=== PATIENT | male | born 1945 | race Caucasian/White ===

== ENCOUNTER 2019-05-15 07:32 | Inpatient (IN) | payer MEDICARE, OTHER ==
[2019-05-15] VITALS (14 sets, daily range): BP systolic 119–205; BP diastolic 58–101
[~2019-05-15] VITALS: Ht 175.3 cm; Wt 81.7 kg
[2019-05-15] MEDS ORDERED: IV RINGERS,LACTATED 1000ML 1,000 ML IV ONE (07:45)
[2019-05-15] MEDS ORDERED: LOSA-73 PO ×2 (07:46→14:58)
[2019-05-15] MEDS ORDERED: METO50TA6 PO (07:46)
[2019-05-15] MEDS ORDERED: PRAV20TA2 PO (07:46)
[2019-05-15] MEDS ORDERED: METOPROLOL TARTRATE 5 MG/5 ML VIAL. IVP ONE ×2 (09:54→10:30)
[2019-05-15] MEDS ORDERED: AMLO5TAB10 PO (09:58)
[2019-05-15 10:06] LABS: BASO # 0.1 x10^3/uL (0.0-0.2); BASO % 1 % (0-3); EOS # 0.2 x10^3/uL (0.0-0.7); EOS % 2 % (0-3); HEMATOCRIT 46.2 % (39.0-53.0); HEMOGLOBIN 14.8 g/dL (13.0-17.5); LYMPH # 1.2 x10^3/uL (1.0-4.8); LYMPH % 13 % (24-48); MEAN CORPUSCULAR HEMOGLOBIN 26 pg (25-35); MEAN CORPUSCULAR HGB CONC 32 g/dL (31-37); MEAN CORPUSCULAR VOLUME 82 fL (79-100); MONO # 0.7 x10^3/uL (0.0-1.1); MONO % 8 % (0-9); NEUT # 6.9 x10^3/uL (1.8-7.7); NEUT % 76 % (31-73); PLATELET COUNT 214 x10^3/uL (140-400); RED BLOOD COUNT 5.65 x10^6/uL (4.30-5.70); RED CELL DISTRIBUTION WIDTH 26.9 % (11.5-14.5); WHITE BLOOD COUNT 9.1 x10^3/uL (4.0-11.0)
[2019-05-15 10:15] LABS: CALCIUM 9.4 mg/dL (8.5-10.1); CREATININE 1.2 mg/dL (0.7-1.3); GFR 59.3
--- NOTE | 2019-05-15 10:19 | PDOC2 ---
CARDIAC CONSULT DATE OF CONSULT Date of Consult DATE: 05/15/19 TIME: 10:09 REASON FOR CONSULT Reason for Consult: Arrhythmia REFERRING PHYSICIAN Referring Physician: Dr. Stokes SOURCE Source: Chart review, Patient HISTORY OF PRESENT ILLNESS HISTORY OF PRESENT ILLNESS Patient was scheduled for outpatient EGD today. Preoperative EKG abnormal and patient having lots of ectopy. EGD/colonoscopy was cancelled and patient was admitted to the hospital for further evaluation and treatment. Patient was told no solid foods for GI prep, but didn't realized he could still take his medications. He has not had any metoprolol since Monday. Does have a history of CAD s/p PCI/stents x2 in 2001. Follows with Dr. Harrell. Denies any chest pain, palpitations, dizziness, diaphoresis, or nausea/vomiting. Does reports some SOA with exertion for the last 6 months. PAST MEDICAL HISTORY Cardiovascular: CAD, HTN, Hyperlipidemia GI: Diverticulosis Heme/Onc: Anemia NOS PAST SURGICAL HISTORY Past Surgical History: Other (aortic aneurysm repair, PCI/stents ) FAMILY HISTORY Family History: Coronary Artery Disease, Hypertension SOCIAL HISTORY Smoke: Quit (22 years ago ) ALCOHOL: other (quit 32 years ago ) Drugs: None Lives: with Family CURRENT MEDICATIONS CURRENT MEDICATIONS Current Medications Medications (Trade) Dose Ordered Sig/Davian Route PRN Reason Start Time Stop Time Status Last Admin Dose Admin Ringer's Solution 1,000 ml @ 75 mls/hr 1X ONCE IV 05/15/19 07:45 05/15/19 21:04 05/15/19 08:20 ALLERGIES ALLERGIES: Coded Allergies: No Known Drug Allergies (Unverified , 05/15/19) ROS Review of System 14 point ROS conducted with pertinent positives noted above in HPI PHYSICAL EXAM General: Alert, Oriented X3, Cooperative, No acute distress HEENT: Atraumatic, Mucous membr. moist/pink Lungs: Clear to auscultation, Normal air movement Heart: Regular rate (SR with frequent PAC's, PVC's, couplets. ) Abdomen: Soft, No tenderness Extremities: No edema, Normal pulses Skin: No breakdown, No significant lesion Neuro: Normal speech, Sensation intact Psych/Mental Status: Mental status NL, Mood NL MUSCULOSKELETAL: Osteoarthritic changes both hands VITALS/I&O VITALS/I&O: Vital Signs Date Time Temp Pulse Resp B/P (MAP) Pulse Ox O2 Delivery O2 Flow Rate FiO2 05/15/19 08:14 97.5 63 20 98 97.5 LABS Lab: Laboratory Tests Test 05/15/19 09:55 White Blood Count 9.1 x10^3/uL (4.0-11.0) Red Blood Count 5.65 x10^6/uL (4.30-5.70) Hemoglobin 14.8 g/dL (13.0-17.5) Hematocrit 46.2 % (39.0-53.0) Mean Corpuscular Volume 82 fL (79-100) Mean Corpuscular Hemoglobin 26 pg (25-35) Mean Corpuscular Hemoglobin Concent 32 g/dL (31-37) Red Cell Distribution Width 26.9 % (11.5-14.5) H Platelet Count 214 x10^3/uL (140-400) Neutrophils (%) (Auto) 76 % (31-73) H Lymphocytes (%) (Auto) 13 % (24-48) L Monocytes (%) (Auto) 8 % (0-9) Eosinophils (%) (Auto) 2 % (0-3) Basophils (%) (Auto) 1 % (0-3) Neutrophils # (Auto) 6.9 x10^3/uL (1.8-7.7) Lymphocytes # (Auto) 1.2 x10^3/uL (1.0-4.8) Monocytes # (Auto) 0.7 x10^3/uL (0.0-1.1) Eosinophils # (Auto) 0.2 x10^3/uL (0.0-0.7) Basophils # (Auto) 0.1 x10^3/uL (0.0-0.2) Laboratory Tests 05/15/19 09:55 ECHOCARDIOGRAM ECHOCARDIOGRAM 02/20/18 - 2-D + DOPPLER ECHOCARDIOGRAM * Left Ventricle: Normal size. Concentric remodeling. Normal ejection fraction. Normal left ventricular diastolic function. * Right Ventricle: Normal size and ejection fraction. * Trileaflet, focally calcified aortic valve with restricted leaflet motion without hemodynamically significant stenosis. No regurgitation. STRESS TEST STRESS TEST 03/02/18 - Procedure: D-SPECT MULTI GATED THALLIUM REGADENOSON MPI STRESS TEST Pharmacological Stress Electrocardiogram: The patient's resting heart rate was 57 bpm and the resting blood pressure was 141/68. The patients peak stress heart rate was 83 bpm and the peak stress blood pressure was 117/64. Following the administration of Regadenoson the patient experienced shortness of breath, chest pressure, and flushing. The symptoms resolved prior to completion of protocol. The resting ECG shows normal sinus rhythm. Following the administration of Regadenoson there are rare PVCs. There is no ST segment deviation from baseline. Conclusion: Pharmacologic stress ECG is negative for ischemia ASSESSMENT/PLAN ASSESSMENT/PLAN 1. Arrhythmia; patient having frequent PAC's and PVC's. Underlying SR. No sustained VT thus far. Has been off metoprolol since this past Monday when he began GI prep. 2. CAD s/p PCI/stents x2 in [address]. [address] Harrell with [facility] 3. Aortic aneurysm repair; 04/2018 4. Hypertension; controlled 5. Hyperlipidemia; statin 6. Anemia, iron deficiency; EGD/colonoscopy planned 7. Diverticulosis Recommendations Monitor tele CBC, BMP, Mg Echo to assess LV systolic function Metoprolol IV x1 now Resume oral metoprolol Resume secondary prevention; add ASA as well If echo WNL and arrhythmias subside, may discharge from a CV standpoint and f/u with Dr. Harrell Consider outpatient ischemic evaluation given YOUNG; will defer to primary drop forger. LIUDMILA CARMICHAEL APRN May 15, 2019 10:19
[2019-05-15 10:20] LABS: ALBUMIN 4.2 g/dL (3.4-5.0); ALBUMIN/GLOBULIN RATIO 1.4 (1.0-1.7); MAGNESIUM 1.9 mg/dL (1.8-2.4); TOTAL BILIRUBIN 0.6 mg/dL (0.2-1.0); TOTAL PROTEIN 7.2 g/dL (6.4-8.2)
--- NOTE | 2019-05-15 10:42 | RAD ---
CHEST AP ONLY History: Shortness of breath Comparison: 06/12/2018 Findings: Single view of the chest is submitted. There are clips in the left upper quadrant of the abdomen. There is mild left base airspace opacity, somewhat linear morphology. There is no pneumothorax. Cardiac silhouette is considered within normal limits given technique. There is atherosclerotic calcification near aortic arch. There is again small radiopaque body projecting over the right lung base region of uncertain AP location. No significant dependent pleural fluid is identified by this exam. Impression: 1. There is left base opacity, evidence of atelectasis or infiltrate. Electronically signed by: Kit Mejía MD (05/15/2019 10:39 AM) [id number]
[2019-05-15] MEDS ORDERED: METOPROLOL TART IMMED RELEASE 50 MG TABLET. PO SCH ×2 (11:00→21:00)
--- NOTE | 2019-05-15 11:01 | PDOC1 ---
History and Physical Date of Admission Date of Admission DATE: 05/15/19 TIME: 11:01 Identification/Chief Complaint Chief Complaint seen in endoscopy lab with uncontrolled htn, intermittent chest discomfort, PVC'S, STATES HE IS unable to walk across the room without SOA endoscopy cancelled due to abnormal EKG notes he snores a lot at night Past Medical History Past Medical History Aortic aneurysm repair; 04/2018 Cardiovascular: CAD, HTN, Hyperlipidemia GI: Diverticulosis Heme/Onc: Anemia NOS Infectious disease: No pertinent hx Family History Family History: High Cholestrol, Hypertension Social History Smoke: Quit ALCOHOL: none Drugs: None Current Medications Current Medications Current Medications Ringer's Solution 1,000 ml @ 75 mls/hr 1X ONCE IV Last administered on 05/15/19at 08:20; Start 05/15/19 at 07:45; Stop 05/15/19 at 21:04 Metoprolol Tartrate (Lopressor) 50 mg BID PO Last administered on 05/15/19at 10:43; Start 05/15/19 at 11:00 Metoprolol Tartrate (Lopressor Vial) 5 mg STK-MED ONCE IVP ; Start 05/15/19 at 09:54; Stop 05/15/19 at 09:54; Status DC Metoprolol Tartrate (Lopressor Vial) 5 mg 1X ONCE IVP Last administered on 05/15/19at 10:19; Start 05/15/19 at 10:30; Stop 05/15/19 at 10:31; Status DC Amlodipine Besylate (Norvasc) 5 mg DAILY PO ; Start 05/15/19 at 12:00 Losartan Potassium (Cozaar) 20 mg DAILY PO ; Start 05/16/19 at 09:00; Status UNV Metoprolol Tartrate (Lopressor) 50 mg BID PO ; Start 05/15/19 at 21:00; Stop 05/15/19 at 10:47; Status DC Non-Formulary Medication (Pravastatin Sodium ) 20 mg DAILY PO ; Start 05/16/19 at 09:00; Status UNV Aspirin (Ecotrin) 81 mg DAILYWBKFT PO ; Start 05/15/19 at 12:00 Active Scripts Active Reported Amlodipine Besylate 5 Mg Tablet 5 Mg PO DAILY Losartan Potassium 50 Mg Tablet 20 Mg PO DAILY Pravastatin Sodium 20 Mg Tablet 20 Mg PO DAILY Metoprolol Tartrate 50 Mg Tablet 50 Mg PO BID Allergies Allergies: Coded Allergies: No Known Drug Allergies (Unverified , 05/15/19) ROS General: YES: Fatigue Eyes: No Blurry vision, No Decreased vision, No Double vision, No Dry eyes, No Excessive tearing, No Eye Pain, No Itchy Eyes, No Loss of vision, No Photophobia, No Scotomata, No Uses contacts, No Uses glasses, No Other HEENT: No: Heacaches, Visual Changes, Hearing change, Nasal congestion, Nasal discharge, Oral lesions, Sinus pain, Sore Throat, Epistaxis, Sneezing, Snoring, Tinnitus, Vertigo, Vocal changes, Other ALLERGY AND IMMUNOLOGY: No: Hives, Insect Bite Sensitivity, Itchy/Watery Eyes, Nasal Congestion, Post Nasal Drip, Seasonal Allergies, Other Hematological and Lymphatic: No: Bleeding Problems, Blood Clots, Blood Transfusions, Brusing, Night Sweats, Pallor, Swollen Lymph Nodes, Other Respiratory: YES: Shortness of breath, SOB with excertion Gastrointestinal: No Nausea, No Vomiting, No Abdominal Pain, No Diarrhea, No Constipation, No Melena, No Hematochezia, No Other Musculoskeletal: No Gait Disturbance, No Joint Pain, No Joint Stiffness, No Joint Swelling, No Muscle Pain, No Muscular Weakness, No Pain In:, No Swelling In:, No Other Neurological: No Behavorial Changes, No Bowel/Bladder ControlChng, No Confusion, No Dizziness, No Gait Disturbance, No Headaches, No Impaired Coord/balance, No Memory Loss, No Numbness/Tingling, No Seizures, No Speech Problems, No Tremors, No Visual Changes, No Weakness, No Other Physical Exam Physical Exam LEFT THORACOTOMY SCAR WNL General: Alert, Oriented X3, Cooperative, No acute distress HEENT: Atraumatic, PERRLA Lungs: Normal air movement, Other (LEFT BASILAR CRACKLES) Heart: no thrills, other (FREQ PVC'S ) Breasts: Not examined Abdomen: Normal bowel sounds, Soft Rectal Exam: not examined PELVIC: Examination not indicated Extremities: No cyanosis, No edema Neuro: Normal speech, Cranial nerves 3-12 NL Psych/Mental Status: Mental status NL, Mood NL Vitals Vitals Vital Signs Date Time Temp Pulse Resp B/P (MAP) Pulse Ox O2 Delivery O2 Flow Rate FiO2 05/15/19 10:43 75 119/92 05/15/19 08:14 97.5 20 98 97.5 Labs Labs Laboratory Tests Test 05/15/19 09:55 White Blood Count 9.1 x10^3/uL (4.0-11.0) Red Blood Count 5.65 x10^6/uL (4.30-5.70) Hemoglobin 14.8 g/dL (13.0-17.5) Hematocrit 46.2 % (39.0-53.0) Mean Corpuscular Volume 82 fL (79-100) Mean Corpuscular Hemoglobin 26 pg (25-35) Mean Corpuscular Hemoglobin Concent 32 g/dL (31-37) Red Cell Distribution Width 26.9 % (11.5-14.5) Platelet Count 214 x10^3/uL (140-400) Neutrophils (%) (Auto) 76 % (31-73) Lymphocytes (%) (Auto) 13 % (24-48) Monocytes (%) (Auto) 8 % (0-9) Eosinophils (%) (Auto) 2 % (0-3) Basophils (%) (Auto) 1 % (0-3) Neutrophils # (Auto) 6.9 x10^3/uL (1.8-7.7) Lymphocytes # (Auto) 1.2 x10^3/uL (1.0-4.8) Monocytes # (Auto) 0.7 x10^3/uL (0.0-1.1) Eosinophils # (Auto) 0.2 x10^3/uL (0.0-0.7) Basophils # (Auto) 0.1 x10^3/uL (0.0-0.2) Sodium Level 142 mmol/L (136-145) Potassium Level 4.0 mmol/L (3.5-5.1) Chloride Level 105 mmol/L (98-107) Carbon Dioxide Level 25 mmol/L (21-32) Anion Gap 12 (6-14) Blood Urea Nitrogen 18 mg/dL (8-26) Creatinine 1.2 mg/dL (0.7-1.3) Estimated GFR (Cockcroft-Gault) 59.3 BUN/Creatinine Ratio 15 (6-20) Glucose Level 90 mg/dL (70-99) Calcium Level 9.4 mg/dL (8.5-10.1) Magnesium Level 1.9 mg/dL (1.8-2.4) Total Bilirubin 0.6 mg/dL (0.2-1.0) Aspartate Amino Transf (AST/SGOT) 16 U/L (15-37) Alanine Aminotransferase (ALT/SGPT) 21 U/L (16-63) Alkaline Phosphatase 91 U/L (46-116) Troponin I Quantitative < 0.017 ng/mL (0.000-0.055) Total Protein 7.2 g/dL (6.4-8.2) Albumin 4.2 g/dL (3.4-5.0) Albumin/Globulin Ratio 1.4 (1.0-1.7) Laboratory Tests Test 05/15/19 09:55 White Blood Count 9.1 x10^3/uL (4.0-11.0) Red Blood Count 5.65 x10^6/uL (4.30-5.70) Hemoglobin 14.8 g/dL (13.0-17.5) Hematocrit 46.2 % (39.0-53.0) Mean Corpuscular Volume 82 fL (79-100) Mean Corpuscular Hemoglobin 26 pg (25-35) Mean Corpuscular Hemoglobin Concent 32 g/dL (31-37) Red Cell Distribution Width 26.9 % (11.5-14.5) Platelet Count 214 x10^3/uL (140-400) Neutrophils (%) (Auto) 76 % (31-73) Lymphocytes (%) (Auto) 13 % (24-48) Monocytes (%) (Auto) 8 % (0-9) Eosinophils (%) (Auto) 2 % (0-3) Basophils (%) (Auto) 1 % (0-3) Neutrophils # (Auto) 6.9 x10^3/uL (1.8-7.7) Lymphocytes # (Auto) 1.2 x10^3/uL (1.0-4.8) Monocytes # (Auto) 0.7 x10^3/uL (0.0-1.1) Eosinophils # (Auto) 0.2 x10^3/uL (0.0-0.7) Basophils # (Auto) 0.1 x10^3/uL (0.0-0.2) Sodium Level 142 mmol/L (136-145) Potassium Level 4.0 mmol/L (3.5-5.1) Chloride Level 105 mmol/L (98-107) Carbon Dioxide Level 25 mmol/L (21-32) Anion Gap 12 (6-14) Blood Urea Nitrogen 18 mg/dL (8-26) Creatinine 1.2 mg/dL (0.7-1.3) Estimated GFR (Cockcroft-Gault) 59.3 BUN/Creatinine Ratio 15 (6-20) Glucose Level 90 mg/dL (70-99) Calcium Level 9.4 mg/dL (8.5-10.1) Magnesium Level 1.9 mg/dL (1.8-2.4) Total Bilirubin 0.6 mg/dL (0.2-1.0) Aspartate Amino Transf (AST/SGOT) 16 U/L (15-37) Alanine Aminotransferase (ALT/SGPT) 21 U/L (16-63) Alkaline Phosphatase 91 U/L (46-116) Troponin I Quantitative < 0.017 ng/mL (0.000-0.055) Total Protein 7.2 g/dL (6.4-8.2) Albumin 4.2 g/dL (3.4-5.0) Albumin/Globulin Ratio 1.4 (1.0-1.7) Images Images CHEST AP ONLY History: Shortness of breath Comparison: 06/12/2018 Findings: Single view of the chest is submitted. There are clips in the left upper quadrant of the abdomen. There is mild left base airspace opacity, somewhat linear morphology. There is no pneumothorax. Cardiac silhouette is considered within normal limits given technique. There is atherosclerotic calcification near aortic arch. There is again small radiopaque body projecting over the right lung base region of uncertain AP location. No significant dependent pleural fluid is identified by this exam. Impression: 1. There is left base opacity, evidence of atelectasis or infiltrate. Electronically signed by: Kit Mejía MD (05/15/2019 10:39 AM) [id number] VTE Prophylaxis Ordered VTE Prophylaxis Devices: No VTE Pharmacological Prophylaxi: Yes Assessment/Plan Assessment/Plan IMPRESSION intermittent CHEST PAIN with frequent PVC'S LEFT BASILAR INFILTRATE/ vs atelectasis possible sleep apnea New onset Dyspnea CAD s/p PCI/stents x2 in [address]. [address] Harrell with [facility] Aortic aneurysm repair; 04/2018 Hypertension; UNCONTROLLED IN OUT PT, NOW improved remote tobacco and alcohol abuse stopped 23 yrs ago PLAN ADMIT SERIAL TROPONIN I NEG X 1 ECHO CARDIOLOGY CONSULT HOME MEDS CXR REVIEWED PULM CONSULT INCENTIVE SPIROMETRY KACI RAMSAY MD May 15, 2019 11:01
--- NOTE | 2019-05-15 11:16 | PDOC ---
Subjective: Subjective: Outpt 'scopes cancelled this morning due to shortness of breath, admitted for cardiology evaluation. He tells me he was cleared for discharge by the cardiology and waistband setter lockstitch. Objective: Vital Signs: Vital Signs Date Time Temp Pulse Resp B/P (MAP) Pulse Ox O2 Delivery O2 Flow Rate FiO2 05/15/19 10:43 75 119/92 05/15/19 08:14 97.5 20 98 97.5 Labs: Laboratory Tests Test 05/15/19 09:55 White Blood Count 9.1 x10^3/uL Red Blood Count 5.65 x10^6/uL Hemoglobin 14.8 g/dL Hematocrit 46.2 % Mean Corpuscular Volume 82 fL Mean Corpuscular Hemoglobin 26 pg Mean Corpuscular Hemoglobin Concent 32 g/dL Red Cell Distribution Width 26.9 % Platelet Count 214 x10^3/uL Neutrophils (%) (Auto) 76 % Lymphocytes (%) (Auto) 13 % Monocytes (%) (Auto) 8 % Eosinophils (%) (Auto) 2 % Basophils (%) (Auto) 1 % Neutrophils # (Auto) 6.9 x10^3/uL Lymphocytes # (Auto) 1.2 x10^3/uL Monocytes # (Auto) 0.7 x10^3/uL Eosinophils # (Auto) 0.2 x10^3/uL Basophils # (Auto) 0.1 x10^3/uL Platelet Estimate Pending Sodium Level 142 mmol/L Potassium Level 4.0 mmol/L Chloride Level 105 mmol/L Carbon Dioxide Level 25 mmol/L Anion Gap 12 Blood Urea Nitrogen 18 mg/dL Creatinine 1.2 mg/dL Estimated GFR (Cockcroft-Gault) 59.3 BUN/Creatinine Ratio 15 Glucose Level 90 mg/dL Calcium Level 9.4 mg/dL Magnesium Level 1.9 mg/dL Total Bilirubin 0.6 mg/dL Aspartate Amino Transf (AST/SGOT) 16 U/L Alanine Aminotransferase (ALT/SGPT) 21 U/L Alkaline Phosphatase 91 U/L Troponin I Quantitative < 0.017 ng/mL Total Protein 7.2 g/dL Albumin 4.2 g/dL Albumin/Globulin Ratio 1.4 Imaging: CXR 05/15 Impression: 1. There is left base opacity, evidence of atelectasis or infiltrate. PE: GEN: NAD LUNGS: CTAB HEART: RRR ABD: NABS, S/ND/NT NEURO/PSYCH: A & O 3 A/P: Anemia - scheduled for outpt EGD and colonoscopy for further eval (normal Hgb today) Shortness of breath -- Called by nurse - pt apparently stopped home meds this week. Cardiology has cleared for EGD/colon before outpt stress test. Pt prefers not to re-prep. Reviewed w/ Dr. Galvan - can proceed w/ 'scopes as inpt today. D/w GI lab. Will tentatively plan for EGD and colonoscopy this afternoon pending results of echo. KILLIAN GOOD May 15, 2019 11:16
--- NOTE | 2019-05-15 11:31 | EKG ---
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
[2019-05-15] MEDS ORDERED: amLODIPine BESYLATE 5 MG TABLET PO SCH (12:00)
[2019-05-15] MEDS ORDERED: ASPIRIN ENTERIC COATED 81 MG TABLET.DR. PO SCH (12:00)
[2019-05-15] MEDS ORDERED: LOSARTAN POTASSIUM 50 MG TABLET. PO SCH (12:00)
[2019-05-15 12:16] LABS: ANISOCYTOSIS MOD; PLT ESTIMATE ADEQUATE (ADEQUATE)
[2019-05-15] MEDS ORDERED: hydrALAZINE 20 MG/ML VIAL. IVP PRN (12:30)
[2019-05-15] MEDS ORDERED: LIDOCAINE 2% PF 5 ML VIAL. ONE (13:21)
[2019-05-15] MEDS ORDERED: PROPOFOL 40 ML IV ONE (13:21)
--- NOTE | 2019-05-15 14:07 | CARD ---
MR#: [id number] Date of Study: 05/15/2019 Ordering Physician: JULIANE KINNEY, Referring Physician: JULIANE KINNEY, Tech: Sarai Hernandez [facility] APPROVED REPORT EXAM: Two-dimensional and M-mode echocardiogram with Doppler and color Doppler. Other Information Quality : AverageHR: 48bpm INDICATION Assess LV function RISK FACTORS Hypertension Hyperlipidemia CAD 2D DIMENSIONS RVDd3.9 (2.9-3.5cm)Left Atrium(2D)4.0 (1.6-4.0cm) IVSd1.6 (0.7-1.1cm)Aortic Root(2D)3.5 (2.0-3.7cm) LVDd4.6 (3.9-5.9cm)LVOT Diameter2.0 (1.8-2.4cm) PWd1.5 (0.7-1.1cm)LVDs2.9 (2.5-4.0cm) FS (%) 36.2 %SV63.5 ml LVEF(%)65.9 (>50%) Aortic Valve AoV Peak Fabio.112.7cm/[place] Peak GR.5.1mmHg LVOT Peak Fabio.73.3cm/sAVA (VMAX)2.10cm2 Mitral Valve MV E Ifzeigmb48.6cm/sMV DECEL [id number] MV A Fpppemjo37.0cm/sE/A Ratio0.6 MV A [id number] Pulmonary Valve PV Peak Vybuqbfu467.8cm/s Pulmonary Vein S1 Zrnppsrf43.4cm/sD2 Vuycoeyy75.2cm/s PVa [id number] LEFT VENTRICLE The left ventricle is normal size. There is moderate concentric left ventricular hypertrophy. The lef t ventricular systolic function is normal. The Ejection Fraction is 55-60%. There is normal LV segmen priscilla wall motion. Transmitral Doppler flow pattern is Grade I-abnormal relaxation pattern. There is no ventricular septal defect visualized. RIGHT VENTRICLE The right ventricle is normal size. The right ventricular systolic function is normal. ATRIA The left atrium size is normal. The right atrium size is at the upper limits of normal in size. The i nteratrial septum is intact with no evidence for an atrial septal defect or patent foramen ovale as n oted on 2-D or Doppler imaging. AORTIC VALVE The aortic valve is mildly thickened but opens well. Doppler and Color Flow revealed no significant a ortic regurgitation. There is no significant aortic valvular stenosis. MITRAL VALVE Mitral annular calcification is mild. There is no evidence of mitral valve prolapse. There is no mitr al valve stenosis. Doppler and Color-flow revealed mild mitral regurgitation. TRICUSPID VALVE The tricuspid valve is normal in structure and function. Doppler and Color Flow revealed no tricuspid valve regurgitation noted. Unable to assess PA pressure. There is no tricuspid valve stenosis. PULMONIC VALVE The pulmonary valve is normal in structure and function. Doppler and Color Flow revealed mild pulmoni c valvular regurgitation. There is no pulmonic valvular stenosis. GREAT VESSELS The aortic root is normal in size. The ascending aorta is normal in size. The pulmonary artery is nor mal. The IVC is normal in size and collapses >50% with inspiration. PERICARDIAL EFFUSION There is no pleural effusion. There is no evidence of significant pericardial effusion. Critical Notification Critical Value: No <Conclusion> The left ventricular systolic function is normal. The Ejection Fraction is 55-60%. There is normal LV segmental wall motion. Transmitral Doppler flow pattern is Grade I-abnormal relaxation pattern. Doppler and Color-flow revealed mild mitral regurgitation. There is no evidence of significant pericardial effusion. Signed by : Steven Reyes, Electronically Approved : 05/15/2019 14:06:59
--- NOTE | 2019-05-15 14:16 | PDOC4 ---
Operative Note Operative Note EGD/Colonoscopy Meds propofol per anesthesia Pre-op dx chronic blood loss anemia post-o dx gastritis sigmoid diverticulosis internal hemorrhoids Plan advance diet and release home with cardiology follow up WAN SHABAZZ MD May 15, 2019 14:16
--- NOTE | 2019-05-15 14:53 | PDOC3 ---
Discharge Summary Date of Admission: May 15, 2019 Date of Discharge: May 15, 2019 Follow-Up: 3-5 days Admitting Diagnosis comment: VTE Prophylaxis Ordered VTE Prophylaxis Devices: No VTE Pharmacological Prophylaxi: Yes DISCHARGE DX Assessment/Plan IMPRESSION intermittent CHEST PAIN with frequent PVC'S LEFT BASILAR INFILTRATE/ vs atelectasis possible sleep apnea New onset Dyspnea CAD s/p PCI/stents x2 in 2001. Follows with Dr. Harrell with [facility] Aortic aneurysm repair; 04/2018 Hypertension; UNCONTROLLED IN OUT PT, NOW improved remote tobacco and alcohol abuse stopped 23 yrs ago PLAN ADMIT SERIAL TROPONIN I NEG X 1 ECHO CARDIOLOGY CONSULT, SEE SOON OUT PT [facility] CXR REVIEWED PULM CONSULT OK WITH D/C PER CHRISTIANO CANTU SEE PULM 6 MONTHS INCENTIVE SPIROMETRY Plan advance diet and release home with cardiology follow up Brief Hospital Course Mr. Salazar is a 74 old [sex] who presented with [ SEVERE HTN] CONDITION AT DISCHARGE: Improved Discharge Medications Current Medications Ringer's Solution 1,000 ml @ 75 mls/hr 1X ONCE IV Last administered on 05/15/19at 08:20; Start 05/15/19 at 07:45; Stop 05/15/19 at 21:04 Metoprolol Tartrate (Lopressor) 50 mg BID PO Last administered on 05/15/19at 10:43; Start 05/15/19 at 11:00 Metoprolol Tartrate (Lopressor Vial) 5 mg STK-MED ONCE IVP ; Start 05/15/19 at 09:54; Stop 05/15/19 at 09:54; Status DC Metoprolol Tartrate (Lopressor Vial) 5 mg 1X ONCE IVP Last administered on 05/15/19at 10:19; Start 05/15/19 at 10:30; Stop 05/15/19 at 10:31; Status DC Amlodipine Besylate (Norvasc) 5 mg DAILY PO Last administered on 05/15/19at 11:22; Start 05/15/19 at 12:00 Losartan Potassium (Cozaar) 20 mg DAILY PO ; Start 05/16/19 at 09:00; Stop 05/15/19 at 11:03; Status DC Metoprolol Tartrate (Lopressor) 50 mg BID PO ; Start 05/15/19 at 21:00; Stop 05/15/19 at 10:47; Status DC Atorvastatin Calcium (Lipitor) 5 mg QHS PO ; Start 05/15/19 at 21:00 Aspirin (Ecotrin) 81 mg DAILYWBKFT PO ; Start 05/15/19 at 12:00 Losartan Potassium (Cozaar) 50 mg DAILY PO Last administered on 05/15/19at 11:29; Start 05/15/19 at 12:00 Hydralazine HCl (Apresoline Inj) 10 mg PRN Q4HRS PRN IVP ELEVATED BP, SEE COMMENTS; Start 05/15/19 at 12:30 Propofol 40 ml @ As Directed STK-MED ONCE IV ; Start 05/15/19 at 13:21; Stop 05/15/19 at 13:21; Status DC Lidocaine HCl (Lidocaine Pf 2% Vial) 5 ml STK-MED ONCE .ROUTE ; Start 05/15/19 at 13:21; Stop 05/15/19 at 13:21; Status DC Active Scripts Active Reported Amlodipine Besylate 5 Mg Tablet 5 Mg PO DAILY Losartan Potassium 50 Mg Tablet 20 Mg PO DAILY Pravastatin Sodium 20 Mg Tablet 20 Mg PO DAILY Metoprolol Tartrate 50 Mg Tablet 50 Mg PO BID Vital Signs Vital Signs Date Time Temp Pulse Resp B/P (MAP) Pulse Ox O2 Delivery O2 Flow Rate FiO2 05/15/19 14:21 93 20 121/58 91 Room Air 05/15/19 14:10 97.9 3 97.9 Labs Laboratory Tests Test 05/15/19 09:55 White Blood Count 9.1 x10^3/uL (4.0-11.0) Red Blood Count 5.65 x10^6/uL (4.30-5.70) Hemoglobin 14.8 g/dL (13.0-17.5) Hematocrit 46.2 % (39.0-53.0) Mean Corpuscular Volume 82 fL (79-100) Mean Corpuscular Hemoglobin 26 pg (25-35) Mean Corpuscular Hemoglobin Concent 32 g/dL (31-37) Red Cell Distribution Width 26.9 % (11.5-14.5) Platelet Count 214 x10^3/uL (140-400) Neutrophils (%) (Auto) 76 % (31-73) Lymphocytes (%) (Auto) 13 % (24-48) Monocytes (%) (Auto) 8 % (0-9) Eosinophils (%) (Auto) 2 % (0-3) Basophils (%) (Auto) 1 % (0-3) Neutrophils # (Auto) 6.9 x10^3/uL (1.8-7.7) Lymphocytes # (Auto) 1.2 x10^3/uL (1.0-4.8) Monocytes # (Auto) 0.7 x10^3/uL (0.0-1.1) Eosinophils # (Auto) 0.2 x10^3/uL (0.0-0.7) Basophils # (Auto) 0.1 x10^3/uL (0.0-0.2) Platelet Estimate Adequate (ADEQUATE) Large Platelets Present Anisocytosis Mod Sodium Level 142 mmol/L (136-145) Potassium Level 4.0 mmol/L (3.5-5.1) Chloride Level 105 mmol/L (98-107) Carbon Dioxide Level 25 mmol/L (21-32) Anion Gap 12 (6-14) Blood Urea Nitrogen 18 mg/dL (8-26) Creatinine 1.2 mg/dL (0.7-1.3) Estimated GFR (Cockcroft-Gault) 59.3 BUN/Creatinine Ratio 15 (6-20) Glucose Level 90 mg/dL (70-99) Calcium Level 9.4 mg/dL (8.5-10.1) Magnesium Level 1.9 mg/dL (1.8-2.4) Total Bilirubin 0.6 mg/dL (0.2-1.0) Aspartate Amino Transf (AST/SGOT) 16 U/L (15-37) Alanine Aminotransferase (ALT/SGPT) 21 U/L (16-63) Alkaline Phosphatase 91 U/L (46-116) Troponin I Quantitative < 0.017 ng/mL (0.000-0.055) Total Protein 7.2 g/dL (6.4-8.2) Albumin 4.2 g/dL (3.4-5.0) Albumin/Globulin Ratio 1.4 (1.0-1.7) Laboratory Tests Test 05/15/19 09:55 White Blood Count 9.1 x10^3/uL (4.0-11.0) Red Blood Count 5.65 x10^6/uL (4.30-5.70) Hemoglobin 14.8 g/dL (13.0-17.5) Hematocrit 46.2 % (39.0-53.0) Mean Corpuscular Volume 82 fL (79-100) Mean Corpuscular Hemoglobin 26 pg (25-35) Mean Corpuscular Hemoglobin Concent 32 g/dL (31-37) Red Cell Distribution Width 26.9 % (11.5-14.5) Platelet Count 214 x10^3/uL (140-400) Neutrophils (%) (Auto) 76 % (31-73) Lymphocytes (%) (Auto) 13 % (24-48) Monocytes (%) (Auto) 8 % (0-9) Eosinophils (%) (Auto) 2 % (0-3) Basophils (%) (Auto) 1 % (0-3) Neutrophils # (Auto) 6.9 x10^3/uL (1.8-7.7) Lymphocytes # (Auto) 1.2 x10^3/uL (1.0-4.8) Monocytes # (Auto) 0.7 x10^3/uL (0.0-1.1) Eosinophils # (Auto) 0.2 x10^3/uL (0.0-0.7) Basophils # (Auto) 0.1 x10^3/uL (0.0-0.2) Platelet Estimate Adequate (ADEQUATE) Large Platelets Present Anisocytosis Mod Sodium Level 142 mmol/L (136-145) Potassium Level 4.0 mmol/L (3.5-5.1) Chloride Level 105 mmol/L (98-107) Carbon Dioxide Level 25 mmol/L (21-32) Anion Gap 12 (6-14) Blood Urea Nitrogen 18 mg/dL (8-26) Creatinine 1.2 mg/dL (0.7-1.3) Estimated GFR (Cockcroft-Gault) 59.3 BUN/Creatinine Ratio 15 (6-20) Glucose Level 90 mg/dL (70-99) Calcium Level 9.4 mg/dL (8.5-10.1) Magnesium Level 1.9 mg/dL (1.8-2.4) Total Bilirubin 0.6 mg/dL (0.2-1.0) Aspartate Amino Transf (AST/SGOT) 16 U/L (15-37) Alanine Aminotransferase (ALT/SGPT) 21 U/L (16-63) Alkaline Phosphatase 91 U/L (46-116) Troponin I Quantitative < 0.017 ng/mL (0.000-0.055) Total Protein 7.2 g/dL (6.4-8.2) Albumin 4.2 g/dL (3.4-5.0) Albumin/Globulin Ratio 1.4 (1.0-1.7) Allergies Allergies Coded Allergies Type Severity Reaction Last Updated Verified No Known Drug Allergies 05/15/19 No Disposition/Orders: D/C to Home Patient Instructions 36 MIN CC TIME KACI RAMSAY MD May 15, 2019 14:53
[2019-05-15] MEDS ORDERED: ASPI-612 PO (14:58)
--- NOTE | 2019-05-15 14:59 | DISCH ---
DISCHARGE INSTRUCTIONS Condition on Discharge Condition on Discharge: Stable Activity After Discharge Activity Instructions for Disc: Activity as tolerated Lifting Instructions after Dis: No heavy lifting, No pulling or pushing Driving Instructions after Dis: Do not drive Diet after Discharge Diet after Discharge: Cardiac Liquid Texture: Thin Liquid Checks after Discharge Checks after discharge: Check blood press - daily Contacting the DRChela after DC Call your doctor for: If your condition worsens Follow-Up Follow up with: LUIS EDUARDO 6 MONTHS Warfarin Follow-Up Warfarin Follow UP: SEE CARDIOLOGY AT [facility] KACI RAMSAY MD May 15, 2019 14:59
--- NOTE | 2019-05-15 16:30 | NUR ---
Discharge Note: GIANNI RODRIGEZ E1 [facility] Discharge instructions and discharge home medications reviewed with Patient and a copy given. All questions have been answered and understanding verbalized. The following instructions and handouts were given: f/u orders, medication rec Discontinued lines and drains: dressing clean dry and intact. Patient discharged to home with self care via spouse
[2019-05-15] MEDS ORDERED: ATORVASTATIN CALCIUM 10 MG TABLET. PO SCH (21:00)
--- NOTE | 2019-05-16 01:30 | CONS ---
DATE OF CONSULTATION: 05/15/2019 ATTENDING PHYSICIAN: Dr. Nathan Galvan. REASON FOR CONSULTATION: The patient is seen in pulmonary consultation at the request of Dr. Galvan for underlying COPD. HISTORY OF PRESENT ILLNESS: The patient is a 74-year-old who has smoked and quit 22 years ago. He has not had any acute exacerbations of COPD. He is noted to have some decreased level of exercise since he has had his pseudo-abdominal aortic aneurysm repair. Today, he was scheduled for an outpatient EGD, was noted to have some ectopy. The procedure was postponed. He was admitted. I was asked to see him in consultation. He does not wear oxygen. He is currently not utilizing any metered-dose inhalers. No recent acute exacerbations of COPD. His chest x-ray was reviewed, revealing no evidence of acute infiltrates. PAST MEDICAL HISTORY: 1. Tobacco dependence, in remission. 2. COPD, unknown FEV1. 3. Coronary artery disease. 4. Hypertension. 5. Hyperlipidemia. 6. Pseudo-aortic aneurysm repair approximately a year ago at [facility]. 7. Chronic anemia. 8. Diverticulosis. 9. Hypertension. PAST SURGICAL HISTORY: As above aortic aneurysm repair, previous PCI stent. ALLERGIES: No known drug allergies. FAMILY HISTORY: No lung disorders. 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 REVIEW OF SYSTEMS: As indicated above, otherwise, a 10-point system was reviewed and negative. CURRENT MEDICATION: List was reviewed. PHYSICAL EXAMINATION: GENERAL: The patient was in the intensive care unit. VITAL SIGNS: Stable. O2 saturation was greater than 92%, currently on room air. HEENT: Eyes, the sclerae were nonicteric. NECK: Jugular venous distention was not elevated. No lymphadenopathy. CHEST: Full expansion. LUNGS: Adequate airway flow with no wheezes. CARDIOVASCULAR: Regular rate and rhythm with S1, S2, no S3. ABDOMEN: Soft, nontender, nondistended. EXTREMITIES: No clubbing, cyanosis or edema. LABORATORY DATA: Reviewed. White count was normal. Hemoglobin and hematocrit were likewise normal. Electrolytes were noted. Chest x-ray noted no acute infiltrates. IMPRESSION: 1. Chronic obstructive pulmonary disease, suspect mild. 2. Arrhythmias per Cardiology. 3. Coronary artery disease, status post PCI stent. 4. Aortic aneurysm repair on 05/06/2018 at [facility]. 5. Hypertension. 6. Hyperlipidemia. PLAN: 1. Respiratory status appears to be compensated, outpatient pulmonary function testing. 2. P.r.n. albuterol 30 minutes prior to exercise. 3. Follow Cardiology input. 4. Okay to proceed with endoscopy, from a pulmonary standpoint of view. I do appreciate the privilege in sharing in the patient's care. MELINA HOFF MD DR: LOREN/henry JOB#: [id number] / [id number]
[2019-05-16] MEDS ORDERED: LOSARTAN POTASSIUM 50 MG TABLET. PO SCH (09:00)
== END 2019-05-15 16:32 | disposition home or self-care (01) | DRG 309 ==
LOC: SURG 07:32 → 1 WEST ICU 09:20
PROVIDERS: ADMIT Family Medicine; ATTEND Internal Medicine Gastroenterology
PROC: 0DJ08ZZ Inspection of Upper Intestinal Tract, Via Natural or Artificial Opening Endoscopic (ICD-10-PCS; principal; 2019-05-15 08:30)
PROC: 0DJD8ZZ Inspection of Lower Intestinal Tract, Via Natural or Artificial Opening Endoscopic (ICD-10-PCS; 2019-05-15 08:30)
DX: I49.3 Ventricular premature depolarization (principal); J98.11 Atelectasis; D50.0 Iron deficiency anemia secondary to blood loss (chronic); K29.70 Gastritis, unspecified, without bleeding; E78.5 Hyperlipidemia, unspecified; K57.30 Diverticulosis of large intestine without perforation or abscess without bleeding; I10 Essential (primary) hypertension; I25.10 Atherosclerotic heart disease of native coronary artery without angina pectoris; J44.9 Chronic obstructive pulmonary disease, unspecified; K64.8 Other hemorrhoids; Z82.49 Family history of ischemic heart disease and other diseases of the circulatory system; Z86.79 Personal history of other diseases of the circulatory system; Z87.891 Personal history of nicotine dependence; Z95.5 Presence of coronary angioplasty implant and graft
CPT/HCPCS: 36415; 43235; 45378; 71045; 80053; 83735; 83880; 84484; 85025; 93005; 93306; J0360; J2001; J2704; J3490; G0378

== ENCOUNTER → 2019-07-04 | Outpatient (CLI) | payer MEDICARE, OTHER ==
[2019-05-15 16:00] VITALS: BP 143/58
[~2019-07-04] MED LIST: AMLO5TAB10 PO; ASPI-612 PO; LOSA-73 PO; METO50TA6 PO; PRAV20TA2 PO; REGADENOSON 0.4 MG/5 ML DISP.SYRIN. IV ONE
--- NOTE | 2019-07-04 09:22 | RAD ---
Procedure: Renal Duplex Complete Clinical information: Hypertension. History of smoking. Technique: Multiple longitudinal and transverse 2D real time grayscale and Doppler ultrasound images through the kidneys were acquired. Findings: The abdominal aorta shows a peak systolic velocity of 164 cm/s. It measures 2.2 cm in the mid portion and shows scattered echogenic plaque. Distally, it measures 1.9 cm. The kidneys are normal in size, contour, cortical thickness, and echogenicity. The right kidney measures 10.7 x 5.7 x 4.3 cm and left kidney measures 12.0 x 5.3 x 5.8 cm. There is no evidence of renal calculi. There is no evidence of hydronephrosis. There is no evidence of a renal mass. Doppler interrogation reveals peak systolic velocities in the right renal artery of 189, 168 and 201 cm/s in the proximal mid and distal portions with resistive indices respectively of 0.8, 0.8 and 0.9. The left renal arterial velocities measure 131, 208 and 138 cm/s with resistive indices of 0.8 in the proximal mid and distal portions. Normal renal artery velocities are usually less than 180 cm/s. The right renal to aortic ratio is 1.2. The left renal to aortic ratio is 1.3. Impression: 1. 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 Electronically signed by: Dilip Estrada MD (07/04/2019 9:19 AM) [id number]
--- NOTE | 2019-07-04 13:12 | RAD ---
MR#: [id number] Date of Study: 07/04/2019 Ordering Physician: DIANNE CELAYA, Referring Physician: DARNELL ZARATE Tech: RT Femi LatifR) (N) APPROVED REPORT Test Type: Pharmacological Stress Nurse/Tech: Sue Veloz R.N. Test Indications: hypertension Cardiac History: stents 2001, htn Medications: see ehr Medical History: see ehr Resting ECG: SR Resting Heart Rate: 60 bpm Resting Blood Pressure: 143/64mmHg Pretest Chest Pain: No chest pain Nurse/Tech Notes lungs cta, heart tones regular, good radial pulse Consent: The procedure was explained to the patient in lay terms. Informed consent was witnessed. Jhonathan eout was entered into [employer] History and Stress Test performed by [facility] Details Pharmacologic stress testing was performed using 0.4mg per 5ml of regadenoson given intravenously ove r 7-10 seconds. Stress Symptoms No chest pain or symptoms.Dyspnea POST EXERCISE Reason for Termination: Infusion complete Target HR: No Max HR: 75 bpm Max Blood Pressure: 144/59mmHg Chest Pain: No. Arrhythmia: Yes. multiple unifocal PVCs throughout, some pairs noted ST Change: No. INTERPRETATION Stress EKG Conclusion: No evidene of stress induced EKG changes. Frequent PVC's noted at rest, extend ing into vasodilator stress. Imaging Protocol IMAGE PROTOCOL: Rest Tc-99m/stress Tc-99m 1 day Rest: Stress: Viability: Radiopharm.Tc99m [id number] Sestamibi Twax45bQu 33mCi Duration 15min. 15min. Img Date 07/04/2019 07/04/2019 Inj-Img Lvte09meg. 60min. Rest Admin Site:IV - Right AntecubitalAdministrator:RT Salomon (Morro)(N) Stress Admin Site: IV - Right AntecubitalAdministrator: MIRIAM Sears STRESS DATA End Diast. Vol.107.0mlAv. Heart Rate64.0bpm End Syst. Vol.38.0mlCO Index BSA4.5L/min Myocardial Wryc371.0gEject. Zukfuvnl54.0% Stress Rates Pk. Fill Rate2.81EDV/secLVtime Pk. Fill 162.82msec Pk. Empty Rate3.31ESV/secLVtime Pk. Nzpfh747.93msec 1/3 Pk. Fill1.52EDV/sec Stress Scores Regional WT3.00Summed WT20.00 Regional WM0.00Summed WM1.00 The rest and stress images show normal perfusion, normal contraction and thickening. LV Perf. Quant 17 Seg. SSS9.00 17 Seg. SRS6.00 17 Seg. SDS3.00 Stress Defect Extent (% LAD)14.40Rest Defect Extent (% LAD)7.50Rev. Defect Extent (% LAD)0.00 Stress Defect Extent (% LCX) 25.00Rest Defect Extent (% LCX)11.30Rev. Defect Extent (% LCX)0.00 Stress Defect Extent (% RCA)5.60Rest Defect Extent (% RCA)0.00Rev. Defect Extent (% RCA)0.00 Stress Defect Extent (% LEONARDO)14.10Rest Defect Extent (% LEONARDO)6.50Rev. Defect Extent (% LEONARDO)0.00 Other Information Quality:Poor Risk Assessment: Low Risk Conclusion 1. No evidence of EKG changes with stress testing. 2. Normal perfusion at stress/rest. 3. Significant motion artifact degrades study quality. 4. Low risk study. 5. EF > 60%. Signed by : Abraham Najera, Electronically Approved : 07/04/2019 13:12:31
== END | disposition home or self-care (01) ==
LOC: NM 07:55
PROVIDERS: ATTEND Internal Medicine Cardiovascular Disease
DX: I70.1 Atherosclerosis of renal artery (principal); I70.0 Atherosclerosis of aorta; I10 Essential (primary) hypertension; Z95.5 Presence of coronary angioplasty implant and graft; Z87.891 Personal history of nicotine dependence
CPT/HCPCS: 76770; 78452; 93017; A9500; J2785